=== PATIENT | female | born 1995 | race Asian ===

== ENCOUNTER 2016-10-05 16:55 | Emergency (ER) | payer OTHER ==
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
== END 2016-10-05 18:12 | disposition home or self-care (01) ==
LOC: ER 16:55
DX: S01.111A Laceration without foreign body of right eyelid and periocular area, initial encounter (principal); Z88.6 Allergy status to analgesic agent; V89.2XXA Person injured in unspecified motor-vehicle accident, traffic, initial encounter; Y93.89 Activity, other specified; Y92.488 Other paved roadways as the place of occurrence of the external cause; Y99.8 Other external cause status
CPT/HCPCS: A4217; X6444; Z7502; Z7610